=== PATIENT | female | born 1980 | race Caucasian/White ===

== ENCOUNTER 2016-07-24 12:04 | Emergency (ER) | payer OTHER ==
[2016-07-24 12:11] VITALS: BMI 37.4
--- NOTE | 2016-07-24 12:52 | DR.GENAD ---
HPI - PCP Primary Care Physician: Santiago Covarrubias - Complaint/Symptoms Chief Complaint Doctors Comments: Patient complains of left shoulder and upper arm pain w/o history of trauma. She admits to left mid to lower rib pain with inspiration. She denies cardiopulmonary disease. Chief Complaint:: pt is c/o left shoulder pain and tightness and nausea. - Source History Provided: Patient - Mode of Arrival Mode of Arrival: Ambulatory - Timing Onset of Chief Complaint: 07/23/16 PMH - PMH Past Medical History: Yes Past Medical History: Hypertension Past Surgical History: Yes Surgical History: Cholecystectomy, Tonsillectomy, Other Past Surgical History Comment: tubaligation - Family History History of Family Medical Conditions: No - Social History Does patient currently use any type of tobacco product: No Have you used tobacco products in the last 12 months: No Type of Tobacco Use: None Does any household member use tobacco: No Alcohol Use: None Do you use any recreational Drugs:: No Lives With: Family Lives Where: Home - infectious screening In the last 2 months have you had wt loss of >10#?: NO Have you had fever, night sweats or hemotysis?: No Have you traveled outside the country in the last 6 months?: No Isolation: Standard ROS - Review of Systems Constitutional: No Symptoms Reported Eyes: No Symptoms Reported ENTM: No Symptoms Reported Respiratoy: No Symptoms Reported Cardiovascular: No Symptoms Reported Gastrointestinal/Abdominal: No Symptoms Reported Genitourinary: No Symptoms Reported Neurological: No Symptoms Reported Musculoskeletal: See HPI, Back Pain, Chest wall, Arm Integumentary: No Symptoms Reported Hematologic/Lymphatic: No Symptoms Reported Endocrine: No Symptoms Reported Psychiatric: No Symptoms Reported All Other Systems: Reviewed and Negative PE - Vital Signs Vitals: Temperature 98.1 F Pulse Rate [Left Brachial] 67 Pulse Rate 84 Respiratory Rate 18 Blood Pressure [Left Arm] 143/99 Blood Pressure 168/104 O2 Sat by Pulse Oximetry 100 - General Limitations: No Limitations General Appearance: Alert, In No Apparent Distress - Head Head Exam: Normal Inspection, Atraumatic - Eyes Eye exam: Normal Appearance, PERRL, EOMI - ENT ENT Exam: Normal Exam External Ear Exam: Normal External Inspection TM/Canal Exam: Bilateral Normal Nose Exam: Normal Nose Exam Mouth Exam: Normal Inspection Throat Exam: Normal Inspection - Neck Neck Exam: Normal Inspection - Chest Chest Inspection: Normal Inspection - Respiratory Respiratory Exam: Normal Lung Sounds Bilat Respiratory Exam: Bilateral Clear to Auscultation - Cardiovascular Cardiovascular Exam: Regular Rate, Normal Rhythm - Abdominal Exam Abdominal Exam: Normal Inspection, Normal Bowel Sounds Abdominal Tenderness: negative: RUQ, RLQ, LUQ, LLQ, Epigastrium, Suprapubic, Diffuse, Mild, Moderate, Severe, Other - Extremities Extremities Exam: Normal Inspection, Full ROM - Back Back Exam: Normal Inspection - Neurologic Neurological Exam: Alert, Oriented X3, CN II-XII Intact - Psychiatric Psychiatric Exam: Normal Affect - Skin Skin Exam: Warm, Dry, Intact Course - Reevaluation 1st: Unchanged ROR - XRAY XRAY Interpreted by: Radiologist (The heart size is at the upper limits of normal with aortic uncoiling. Findings may indicate systemic hypertension. Slight increase in interstitial markings is present in the lung bases. This may indicate mild bronchitis. No consolidation, pleural fluid or pneumothorax is seen. Osseous structures are intack. Impression: Hypertensive configuration , Mild bibasilar bronchitis) - Diagnosis Discharge Problem: Bronchitis - Discharge Plan Condition: Stable - Follow ups/Referrals Follow ups/Referrals: NFD,None [Primary Care Provider] - 3 days - Instructions
--- NOTE | 2016-07-24 13:11 | RAD ---
HISTORY: Left arm pain, left-sided chest pain Study: Three view cervical spine Comparison: None Findings: Normal cervical alignment. The C7 vertebral body is not seen on the lateral view. Otherwise the vert ebral bodies appear no. Prevertebral soft tissues are normal. There is mild cervical spondylosis. Th e disc spaces appear preserved. The visualized odontoid process appears intact. No evidence of acute fracture or subluxation. There are facet degenerative changes bilaterally at C3-C4. IMPRESSION: 1. Mild degenerative changes as described. No acute osseous abnormality. Reported By:
[2016-07-24] MEDS ORDERED: ZOFRAN TAB 4 MG PO ONE (13:15)
--- NOTE | 2016-07-24 13:16 | RAD ---
HISTORY: Left lower rib pain with inspiration. Chest pain on left side Study: Two-view chest Comparison: No priors Findings: Trachea is midline. The heart size is at the upper limits of normal with aortic uncoiling. Findings may indicate systemic hypertension. Slight increase in interstitial markings is present in the lung bases. This may indicate mild bronchitis. No consolidation, pleural fluid or pneumothorax is seen. O sseous structures are intact. IMPRESSION: Hypertensive configuration. Mild bibasilar bronchitis. Intact osseous structures. Reported By:
[2016-07-24] MEDS ORDERED: ZOFRAN TAB 4 MG ONE (13:17)
[2016-07-24 13:20] VITALS: BP 143/99
[2016-07-24 13:48] LABS: BASOPHILS # (AUTO) 0.1 X10^3/uL (0.0-0.1); EOSINOPHILS # (AUTO) 0.1 x10^3/uL (0.0-0.2); EOSINOPHILS % (AUTO) 1.4 % (0.9-2.9); HEMATOCRIT 38.7 % (36.0-47.0); HEMOGLOBIN 12.6 g/dL (12.0-16.0); LYMPHOCYTES # (AUTO) 2.6 X10^3/uL (1.3-2.9); LYMPHOCYTES % (AUTO) 29.5 % (21.0-51.0); MEAN CORPUSCULAR HEMOGLOBIN 26.1 pg (27.0-34.0); MEAN CORPUSCULAR HGB CONC 32.5 g/dL (33.0-35.0); MEAN CORPUSCULAR VOLUME 80.1 fL (80.0-100.0); MEAN PLATELET VOLUME 8.4 fL (7.4-11.0); MONOCYTES # (AUTO) 0.5 x10^3/uL (0.3-0.8); MONOCYTES % (AUTO) 6.2 % (0.0-13.0); NEUTROPHILS # (AUTO) 5.5 x10^3/uL (2.2-4.8); NEUTROPHILS % (AUTO) 61.9 % (42.0-75.0); PLATELET COUNT 271 X10^3/uL (150.0-450.0); RED BLOOD COUNT 4.83 X10^6/uL (3.5-5.4); RED CELL DISTRIBUTION WIDTH 14.5 % (11.6-16.5); WHITE BLOOD COUNT 8.8 X10^3/uL (3.6-10.0)
[2016-07-24 14:08] LABS: BLOOD UREA NITROGEN 10 mg/dL (7-18); CALCIUM 8.6 mg/dL (8.5-10.1); CARBON DIOXIDE 26.5 mmol/L (21-32); CHLORIDE 106 mmol/L (98-107); CREATININE 0.94 mg/dL (0.55-1.02); GLUCOSE 81 mg/dL (65-99); SODIUM 142 mmol/L (136-145); eGFR BLACK RACES > 60 (>60); eGFR NON BLACK RACES > 60 (>60)
== END 2016-07-24 14:42 | disposition home or self-care (01) ==
LOC: ER 12:15
DX: J40 Bronchitis, not specified as acute or chronic (principal)
CPT/HCPCS: 36415; 71020; 72040; 80048; 85025; 86140; 86677; 99283; S0181

== ENCOUNTER 2017-09-06 18:15 | Emergency (ER) | payer OTHER ==
[2017-09-06 18:23] VITALS: BP 186/119; BMI 34.3
[2017-09-06] MEDS ORDERED: TORADOL 60 MG VIAL IM ONE (18:36)
[2017-09-06] MEDS ORDERED: DECADRON INJ IM ONE (18:36)
[2017-09-06] MEDS ORDERED: ROCEPHIN VIAL 1 GM IM ONE (18:36)
--- NOTE | 2017-09-06 18:36 | DR.GENAD ---
HPI - PCP Primary Care Physician: Dr. Covarrubias - HPI Comment HPI Comment: CURRENTLY ON AMOXICILLIN THAT WAS STARTED YESTERDAY. NO FEVER. MOTRIN DID NOT HELP PAIN. WORSE TODAY. LEFT JAW SLIGHTLY SWOLLEN. - Complaint/Symptoms Chief Complaint Doctors Comments: LEFT JAW PAIN WITH TOOTH ACHE LEFT LOWER MOLAR TIMES ONE DAY. Chief Complaint:: Yesterday morning started having left sided jaw pain. Pt saw dentist yesterday and was started on Amoxicillin TID. Woke up today and pain was exceedingly worse. Pain is described as constant throbbing radiating up the entire side of left face Self Treatment fo Chief Complaint: Flexeril and Aspirin with no relief - Nurses notes reviewed Nurses Notes Review: Yes - Source History Provided: Patient - Mode of Arrival Mode of Arrival: Ambulatory - Timing Onset of Chief Complaint: 09/05/17 Came on: Suddenly - Duration Duration: Constant Duration: Days - Severity Severity: Moderate PMH - PMH Past Medical History: Yes Past Medical History: Migraines, Hypertension Past Medical History Comment: fibromyalgia Past Surgical History: Yes Surgical History: Cholecystectomy, Hysterectomy Past Surgical History Comment: bladder sling, tubal ligation - Family History History of Family Medical Conditions: No (unknown) - Social History Does patient currently use any type of tobacco product: Yes Have you used tobacco products in the last 12 months: Yes Type of Tobacco Use: None Does any household member use tobacco: No Alcohol Use: None Do you use any recreational Drugs:: No Lives With: Alone Lives Where: Home - infectious screening In the last 2 months have you had wt loss of >10#?: NO Have you had fever, night sweats or hemotysis?: No Have you traveled outside the country in the last 6 months?: No Isolation: Standard ROS - Review of Systems Constitutional: No Symptoms Reported Eyes: No Symptoms Reported ENTM: Mouth Pain (LEFT LOWER MOLAR PAIN WITH SWOLLEN JAW.) Respiratoy: No Symptoms Reported Cardiovascular: No Symptoms Reported Gastrointestinal/Abdominal: No Symptoms Reported Genitourinary: No Symptoms Reported Neurological: No Symptoms Reported Musculoskeletal: No Symptoms Reported Integumentary: No Symptoms Reported Hematologic/Lymphatic: No Symptoms Reported Endocrine: No Symptoms Reported All Other Systems: Reviewed and Negative PE - Vital Signs Vitals: Temperature 98.2 F Pulse Rate 100 Respiratory Rate 20 Blood Pressure [Left Arm] 143/99 Blood Pressure 186/119 O2 Sat by Pulse Oximetry 99 - General Limitations: No Limitations General Appearance: Alert - Head Head Exam: Normal Inspection (JAW SWOLLEN AND TENDER.), Other - Eyes Eye exam: Normal Appearance - ENT ENT Exam: Normal External Ear Exam External Ear Exam: Normal External Inspection TM/Canal Exam: Bilateral Normal Nose Exam: Normal Nose Exam Mouth Exam: Other (LEFT LOWER FIRST MOLAR TENDER, GUM RED AND SWOLLEN. ). negative: Trismus Throat Exam: Normal Inspection - Neck Neck Exam: Trachea Midline - Chest Chest Inspection: Symmetric Chest Wall Rise - Respiratory Respiratory Exam: Normal Lung Sounds Bilat Respiratory Exam: Bilateral Clear to Auscultation - Cardiovascular Cardiovascular Exam: Regular Rate, Normal Rhythm, Normal Heart Sounds - Abdominal Exam Abdominal Exam: Normal Bowel Sounds, Soft. negative: Tenderness - Extremities Extremities Exam: Normal Inspection - Back Back Exam: Normal Inspection - Neurologic Neurological Exam: Alert - Psychiatric Psychiatric Exam: Normal Affect, Normal Mood - Skin Skin Exam: Normal Color MDM - Additional Information Additional Information Obtained From: Family - Differential Diagnosis Differential Diagnosis: DENTAL PAIN, JAW PAIN, GINGIVITIS. Course - Treatment Treatment: SEE ORDERS. IM MEDS IN ED. PAIN IMPROVING. - Education/Counseling Education/Counseling: Patient, Education Educated On: Diagnosis, Needs for Follow Up - Diagnosis Discharge Problem: Pain, dental, Gingivitis - Discharge Plan Disposition: 01 HOME, SELF-CARE Condition: Stable Prescriptions: Ketorolac Tromethamine [Toradol Tab] 10 mg PO Q8H PRN #15 tab PRN Reason: Pain Prednisone [Prednisone Tab 10 mg] 10 mg PO QAM #7 tab - Follow ups/Referrals Follow ups/Referrals: Eliezer COVARRUBIAS [Primary Care Provider] - 3 days - Instructions Instructions: Gingivitis, [id number], Dental Abscess, [id number] Additional Instructions: RETURN TO ED IF WORSE. FOLLOW UP WITH YOUR DENTIST SOON POSSIBLE.
[2017-09-06] MEDS ORDERED: TORADOL 60 MG VIAL ONE (18:49)
[2017-09-06] MEDS ORDERED: DECADRON INJ ONE (18:50)
[2017-09-06] MEDS ORDERED: ROCEPHIN VIAL 1 GM ONE (18:50)
== END 2017-09-06 19:52 | disposition home or self-care (01) ==
LOC: ER 18:25
DX: K05.10 Chronic gingivitis, plaque induced (principal); K08.89 Other specified disorders of teeth and supporting structures
CPT/HCPCS: 96372; 99282; J0696; J1100; J1885